=== PATIENT | female | born 1945 | race Caucasian/White ===

== ENCOUNTER 2017-01-17 00:21 | Emergency (ER) | payer OTHER ==
[2017-01-17] MEDS ORDERED: SODIUM CHLORIDE 1,000 ML IV STA (01:36)
[2017-01-17] MEDS ORDERED: ONDANSETRON 4 MG/2 ML VIAL IVPB ONE (01:36)
[2017-01-17] MEDS ORDERED: morphine CARPU-JECT 4 MG/1 ML DISP.SYRIN IVPUSH ONE (01:36)
--- NOTE | 2017-01-17 01:40 | PDOC ---
*Physical Exam - Vital Signs Last Vital Signs Temp Pulse Resp BP Pulse Ox 97.5 F L 56 L 14 140/76 97 01/17/17 01:29 01/17/17 01:29 01/17/17 01:29 01/17/17 01:29 01/17/17 01:29 ED Treatment Course - LABORATORY CBC & Chemistry Diagram: 01/17/17 01:53 01/17/17 01:53 Medical Decision Making - Medical Decision Making 01/17/17 01:40 agree with care from HECTOR Mathur *DC/Admit/Observation/Transfer Diagnosis at time of Disposition: Gastroenteritis - Discharge Dispostion Disposition: HOME Condition at time of disposition: Improved - Prescriptions Prescriptions: Famotidine [Pepcid] 40 mg PO DAILY #14 tablet Ondansetron [Zofran Odt -] 4 mg SL Q6H PRN #20 od.tablet PRN Reason: Nausea - Patient Instructions Printed Discharge Instructions: DI for Bacterial Gastroenteritis -- Adult Additional Instructions: Follow up with Dr. Bae (Gastroenterology). Take medications as prescribed. Return if symptoms worsen or any concerns for further evaluation. Print Language: TURKMEN
[2017-01-17 02:00] LABS: BASOPHIL 0.4 % (0-2.0); EOSINOPHIL 2.1 % (0-4.5); MCH 31.6 pg (25.7-33.7); MCHC 34.1 g/dl (32.0-36.0); MEAN CELL VOLUME 92.6 fl (80-96); MEAN PLT VOLUME 8.3 fl (7.5-11.1); NEUTROPHILS 77.6 % (42.8-82.8); PLATELET COUNT 181 K/MM3 (134-434); RDW 12.6 % (11.6-15.6); WHITE BLOOD COUNT 6.1 K/mm3 (4.0-10.0)
[2017-01-17] MEDS ORDERED: ONDANSETRON 4 MG/2 ML VIAL ONE (02:00)
[2017-01-17] MEDS ORDERED: morphine CARPU-JECT 4 MG/1 ML DISP.SYRIN ONE (02:00)
[2017-01-17 02:03] VITALS: BP 140/76; PULSE 56; TEMP 97.5; BMI 16.6
[2017-01-17 02:26] LABS: ALBUMIN 3.8 g/dl (3.4-5.0); ALK PHOS 59 U/L (45-117); AMYLASE 31 U/L (25-115); ANION GAP 9 (8-16); BILIRUBIN,TOTAL 0.3 mg/dL (0.2-1.0); CALCIUM 8.9 mg/dL (8.5-10.1); CO2 26 mmol/L (21-32); CREATININE 0.7 mg/dL (0.55-1.02); GLUCOSE,RANDOM 111 mg/dL (74-106); SGOT/AST 19 U/L (15-37); SGPT/ALT 30 U/L (12-78); TOT PROT 6.5 g/dl (6.4-8.2)
[2017-01-17 02:29] LABS: CPK 132 IU/L (26-192); TROPONIN I < 0.02 ng/ml (0.00-0.05)
--- NOTE | 2017-01-17 05:09 | PDOC ---
History of Present Illness - General Chief Complaint: Nausea/Vomiting Stated Complaint: ABDOMINAL PAIN,VOMITING Time Seen by Provider: 01/17/17 01:24 History Source: Patient Exam Limitations: No Limitations - History of Present Illness Travel History: No Initial Comments: 01/17/17 05:03 71-year-old female patient presents to emergency department complaining of abdominal pain. Patient has a past medical, appendectomy, hypothyroidism, and depression. Patient states abd after eating dinner vom3, went away for about 30 minutes, and return constant worsening abdominal pain. She states symptoms began yesterday but returned today intermittently and worse. patient denies chest pain, diff breathing, SOB, rash, cough, congestion, diarrhea, constipation , rectal bleeding, or any other complaints at this time. Timing/Duration: reports: constant, getting worse Abdominal Pain Onset Location: reports: RLQ, LLQ Pain Radiation: reports: no radiation Activities at Onset: reports: none Treatment Prior to Arrive: worse with: analgesics, antacids, cold pack, heat, laxative, enema, other Past History - Travel Traveled outside of the country in the last 30 days: No Close contact w/someone who was outside of country & ill: No - Past Medical History Allergies/Adverse Reactions: Allergies Allergy/AdvReac Type Severity Reaction Status Date / Time Penicillins Allergy Verified 01/17/17 01:29 Home Medications: Ambulatory Orders Bupropion HBr [Aplenzin] 174 mg PO TID 01/17/17 Famotidine [Pepcid] 40 mg PO DAILY #14 tablet 01/17/17 Levothyroxine [Synthroid -] 0 mcg PO DAILY 01/17/17 Ondansetron [Zofran Odt -] 4 mg SL Q6H PRN #20 od.tablet 01/17/17 Tiotropium [place] [Spiriva] 1 inh IH DAILY 01/17/17 - Suicide/Smoking/Psychosocial Hx Smoking History: Never smoked Information on smoking cessation initiated: No Hx Alcohol Use: No Drug/Substance Use Hx: No Abd/GI Specific PMHX - Complaint Specific PMHX Colitis: No Diverticulitis: No Gall Bladder Disease: No GERD: No Hepatitis: No Irritable Bowel Synd (IBS): No Pancreatitis: No GI Ulcer Disease: No Review of Systems - Review of Systems Able to Perform ROS?: Yes Is the patient limited Armenian proficient: No Constitutional: No: Chills, Fever ABD/GI: Yes: Nausea, Vomiting, Abdominal cramping (Lower Abdomen). No: Constipated, Diarrhea, Poor Appetite, Poor Fluid Intake All Other Systems: Reviewed and Negative *Physical Exam - Vital Signs Last Vital Signs Temp Pulse Resp BP Pulse Ox 97.5 F L 56 L 14 140/76 97 01/17/17 01:29 01/17/17 01:29 01/17/17 01:29 01/17/17 01:01/17/17 01:29 - Physical Exam General Appearance: Yes: Nourished, Appropriately Dressed, Mild Distress. No: Apparent Distress, Moderate Distress, Severe Distress Neck: positive: Trachea midline, Supple. negative: Lymphadenopathy (R), Lymphadenopathy (L) Respiratory/Chest: positive: Lungs Clear, Normal Breath Sounds. negative: Chest Tender, Respiratory Distress, Accessory Muscle Use, Labored Respiration, Rapid RR, Rhonchi, Stridor, Wheezing Cardiovascular: positive: Regular Rhythm, Regular Rate Gastrointestinal/Abdominal: positive: Normal Bowel Sounds, Tender, Soft, Guarding, Rebound, Tenderness. negative: Distended Musculoskeletal: positive: Normal Inspection. negative: CVA Tenderness Extremity: positive: Normal Capillary Refill, Normal Inspection, Normal Range of Motion. negative: Pedal Edema, Swelling, Calf Tenderness, Erythema, Inflammation Integumentary: positive: Normal Color, Dry, Warm Neurologic: positive: pst manager II-XII NML intact, Fully Oriented, Alert, Normal Mood/ Affect, Normal Response, Motor Strength 5/5 ED Treatment Course - LABORATORY CBC & Chemistry Diagram: 01/17/17 01:53 01/17/17 01:53 - ADDITIONAL ORDERS Additional order review: Laboratory Results 01/17/17 01/17/17 01:53 01:53 Sodium 142 Potassium 3.5 Chloride 107 Carbon Dioxide 26 Anion Gap 9 BUN 27 H Creatinine 0.7 Creat Clearance w eGFR > 60 Random Glucose 111 H Calcium 8.9 Total Bilirubin 0.3 AST 19 ALT 30 Alkaline Phosphatase 59 Creatine Kinase 132 Troponin I < 0.02 Total Protein 6.5 Albumin 3.8 Total Amylase 31 Lipase 96 01/17/17 01:53 RBC 4.08 MCV 92.6 MCHC 34.1 RDW 12.6 MPV 8.3 Neutrophils % 77.6 Lymphocytes % 12.9 Monocytes % 7.0 Eosinophils % 2.1 Basophils % 0.4 - RADIOLOGY Radiology Studies Ordered: Category Date Time Status ABDOMEN & PELVIS CT WITH CONTR [CT] Stat CT Scan 01/17/17 01:36 Taken - Medications Given in the ED: ED Medications Discontinued Medications Generic Name Dose Route Start Last Admin Trade Name Freq PRN Reason Stop Dose Admin Sodium Chloride 1,000 mls @ 1,000 mls/hr 01/17/17 01:36 01/17/17 02:24 Normal Saline - IV 01/17/17 02:35 1,000 mls/hr ASDIR STA Administration Morphine Sulfate 4 mg 01/17/17 01:36 01/17/17 02:24 Morphine Injection - IVPUSH 01/17/17 01:37 4 mg ONCE ONE Administration Ondansetron HCl 8 mg 01/17/17 01:36 01/17/17 02:24 Zofran Injection IVPB 01/17/17 01:37 8 mg ONCE ONE Administration *DC/Admit/Observation/Transfer Diagnosis at time of Disposition: Gastroenteritis - Discharge Dispostion Disposition: HOME Condition at time of disposition: Improved Admit: No - Prescriptions Prescriptions: Famotidine [Pepcid] 40 mg PO DAILY #14 tablet Ondansetron [Zofran Odt -] 4 mg SL Q6H PRN #20 od.tablet PRN Reason: Nausea - Patient Instructions Printed Discharge Instructions: DI for Bacterial Gastroenteritis -- Adult Additional Instructions: Follow up with Dr. Bae (Gastroenterology). Take medications as prescribed. Return if symptoms worsen or any concerns for further evaluation. Print Language: [place]
--- NOTE | 2017-01-17 09:08 | PDOC ---
*Physical Exam - Vital Signs Last Vital Signs Temp Pulse Resp BP Pulse Ox 97.5 F L 56 L 14 140/76 97 01/17/17 01:29 01/17/17 01:29 01/17/17 01:29 01/17/17 01:29 01/17/17 01:29 ED Treatment Course - LABORATORY CBC & Chemistry Diagram: 01/17/17 01:53 01/17/17 01:53 - ADDITIONAL ORDERS Additional order review: Laboratory Results 01/17/17 01/17/17 01:53 01:53 Sodium 142 Potassium 3.5 Chloride 107 Carbon Dioxide 26 Anion Gap 9 BUN 27 H Creatinine 0.7 Creat Clearance w eGFR > 60 Random Glucose 111 H Calcium 8.9 Total Bilirubin 0.3 AST 19 ALT 30 Alkaline Phosphatase 59 Creatine Kinase 132 Troponin I < 0.02 Total Protein 6.5 Albumin 3.8 Total Amylase 31 Lipase 96 01/17/17 01:53 RBC 4.08 MCV 92.6 MCHC 34.1 RDW 12.6 MPV 8.3 Neutrophils % 77.6 Lymphocytes % 12.9 Monocytes % 7.0 Eosinophils % 2.1 Basophils % 0.4 - Medications Given in the ED: ED Medications Discontinued Medications Generic Name Dose Route Start Last Admin Trade Name Freq PRN Reason Stop Dose Admin Sodium Chloride 1,000 mls @ 1,000 mls/hr 01/17/17 01:36 01/17/17 02:24 Normal Saline - IV 01/17/17 02:35 1,000 mls/hr ASDIR STA Administration Morphine Sulfate 4 mg 01/17/17 01:36 01/17/17 02:24 Morphine Injection - IVPUSH 01/17/17 01:37 4 mg ONCE ONE Administration Ondansetron HCl 8 mg 01/17/17 01:36 01/17/17 02:24 Zofran Injection IVPB 01/17/17 01:37 8 mg ONCE ONE Administration Medical Decision Making - Medical Decision Making 01/17/17 09:01 called by radiology - pt with a 6mm ureteral stone at Prox L ureter with mild hydro called the patient. currently no pain. no hematuria. Pt currently visiting here from [place] for a couple more weeks. Recommended follow up with [address] [place] [address] and follow up with urology - Dr. Miller. Pt verbalises understanding of all instructions. Gave all reasons to return to the ED. Pt denies dysuria, f/c, hematuria, urinary complaints. No pain. *DC/Admit/Observation/Transfer Diagnosis at time of Disposition: Gastroenteritis - Discharge Dispostion Disposition: HOME Condition at time of disposition: Improved - Prescriptions Prescriptions: Famotidine [Pepcid] 40 mg PO DAILY #14 tablet Ondansetron [Zofran Odt -] 4 mg SL Q6H PRN #20 od.tablet PRN Reason: Nausea - Referrals - Patient Instructions Printed Discharge Instructions: DI for Bacterial Gastroenteritis -- Adult Additional Instructions: Follow up with Dr. Bae (Gastroenterology). Take medications as prescribed. Return if symptoms worsen or any concerns for further evaluation. Print Language: MAORI - Post Discharge Activity
== END 2017-01-17 05:36 | disposition home or self-care (01) ==
LOC: JER 00:21
PROC: 3E033NZ Introduction of Analgesics, Hypnotics, Sedatives into Peripheral Vein, Percutaneous Approach (ICD-10-PCS; principal; 2017-01-17)
PROC: 3E033GC Introduction of Other Therapeutic Substance into Peripheral Vein, Percutaneous Approach (ICD-10-PCS; 2017-01-17)
PROC: 3E0337Z Introduction of Electrolytic and Water Balance Substance into Peripheral Vein, Percutaneous Approach (ICD-10-PCS; 2017-01-17)
DX: K52.9 Noninfective gastroenteritis and colitis, unspecified (principal)
CPT/HCPCS: 36415; 74177-TC; 80053; 82150; 83690; 84484; 85025; 99281-25; 99283-25

== ENCOUNTER 2017-01-17 21:12 | Emergency (ER) | payer OTHER ==
[2017-01-17 21:17] VITALS: TEMP 97.6; BMI 16.6
[2017-01-17] MEDS ORDERED: PANTOPRAZOLE SODIUM 40 MG in SODIUM CHLORIDE 100 ML IVPB ONE (22:43)
[2017-01-17] MEDS ORDERED: FAMOTIDINE 20 MG/50 ML IVPB 50 ML IVPB ONE ×2 (22:44→22:50)
[2017-01-17] MEDS ORDERED: morphine CARPU-JECT 4 MG/1 ML DISP.SYRIN IVPUSH ONE (22:44)
[2017-01-17] MEDS ORDERED: METOCLOPRAMIDE HCL INJECTION 10 MG/2 ML VIAL IVPB ONE (22:44)
[2017-01-17] MEDS ORDERED: SODIUM CHLORIDE 1,000 ML IV STA (22:44)
[2017-01-17] MEDS ORDERED: KETOROLAC TROMETHAMINE 30 MG/1 ML VIAL IVPUSH ONE (22:53)
[2017-01-17] MEDS ORDERED: morphine CARPU-JECT 4 MG/1 ML DISP.SYRIN ONE (22:54)
[2017-01-17] MEDS ORDERED: METOCLOPRAMIDE HCL INJECTION 10 MG/2 ML VIAL ONE (22:54)
[2017-01-17] MEDS ORDERED: PANTOPRAZOLE SODIUM 100 ML IVPB ONE (22:54)
[2017-01-17] MEDS ORDERED: KETOROLAC TROMETHAMINE 30 MG/1 ML VIAL ONE (23:15)
--- NOTE | 2017-01-17 23:24 | PDOC ---
History of Present Illness - General Chief Complaint: Pain Stated Complaint: PAIN Time Seen by Provider: 01/17/17 22:42 History Source: Patient, Significant Other Exam Limitations: No Limitations - History of Present Illness Travel History: No Initial Comments: 01/17/17 23:18 71yo Female patient seen in this ED yesterday. Please see my previous note. Patient was discharge with Dx: Gastroenteritis r/t negative Ct-Scan. Patient was then called earlier today and notified that she actually has a left 6 mm Ureter Stone with mild hydronephrosis. Please refer to Soni Vaughan charting. Patient returns tonight c/o left flank pain and vomiting worsening. No new complaints at this time. Past History - Travel Traveled outside of the country in the last 30 days: No Close contact w/someone who was outside of country & ill: No - Past Medical History Allergies/Adverse Reactions: Allergies Allergy/AdvReac Type Severity Reaction Status Date / Time Penicillins Allergy Verified 01/17/17 01:29 Home Medications: Ambulatory Orders Bupropion HBr [Aplenzin] 174 mg PO TID 01/17/17 Famotidine [Pepcid] 40 mg PO DAILY #14 tablet 01/17/17 Levothyroxine [Synthroid -] 0 mcg PO DAILY 01/17/17 Ondansetron [Zofran Odt -] 4 mg SL Q6H PRN #20 od.tablet 01/17/17 Tiotropium [place] [Spiriva] 1 inh IH DAILY 01/17/17 Ciprofloxacin [Cipro (Restricted To Id)] 500 mg PO BID #14 tablet 01/18/17 Oxycodone HCl/Acetaminophen [Percocet 5-325 mg Tablet] 1 tab PO Q4H PRN #24 tablet MDD 6 tabs 01/18/17 Tamsulosin HCl [Flomax] 0.4 mg PO DAILY #30 cap.er.24h 01/18/17 COPD: Yes Thyroid Disease: Yes Other medical history: depression - Surgical History Appendectomy: Yes - Suicide/Smoking/Psychosocial Hx Smoking History: Former smoker Have you smoked in the past 12 months: No Information on smoking cessation initiated: No Hx Alcohol Use: Yes Drug/Substance Use Hx: No Abd/GI Specific PMHX - Complaint Specific PMHX Colitis: No Diverticulitis: No Gall Bladder Disease: No GERD: No Hepatitis: No Irritable Bowel Synd (IBS): No Pancreatitis: No GI Ulcer Disease: No Review of Systems - Review of Systems Able to Perform ROS?: Yes Is the patient limited Jordanian proficient: No Constitutional: No: Chills, Fever Respiratory: No: Cough, Shortness of Breath, Wheezing Cardiac (ROS): No: Chest Pain, Palpitations, Syncope, Chest Tightness ABD/GI: Yes: Nausea, Poor Fluid Intake, Vomiting. No: Constipated, Diarrhea, Poor Appetite, Abdominal cramping : Yes: Flank Pain (Left). No: Burning, Dysuria, Discharge, Hematuria All Other Systems: Reviewed and Negative *Physical Exam - Vital Signs Last Vital Signs Temp Pulse Resp BP Pulse Ox 97.6 F 57 L 19 138/87 96 01/17/17 21:15 01/17/17 21:15 01/17/17 21:15 01/17/17 21:15 01/17/17 21:15 - Physical Exam General Appearance: Yes: Nourished, Appropriately Dressed, Apparent Distress, Mild Distress. No: Moderate Distress, Severe Distress Neck: positive: Trachea midline, Supple. negative: Stridor, Lymphadenopathy (R) , Lymphadenopathy (L) Respiratory/Chest: positive: Lungs Clear, Normal Breath Sounds. negative: Chest Tender, Respiratory Distress, Accessory Muscle Use, Labored Respiration, Rapid RR, Paradoxal Breathing, Stridor Cardiovascular: positive: Regular Rhythm, Regular Rate Gastrointestinal/Abdominal: positive: Tender (Left flank), Soft, Increased Bowel Sounds, Tenderness. negative: Distended, Guarding, Rebound Musculoskeletal: positive: Normal Inspection, CVA Tenderness, CVA Tenderness (L) . negative: CVA Tenderness (R) Extremity: positive: Normal Capillary Refill, Normal Inspection, Normal Range of Motion Integumentary: positive: Normal Color, Dry, Warm Neurologic: positive: painter aircraft II-XII NML intact, Fully Oriented, Alert, Normal Mood/ Affect, Normal Response, Motor Strength 08/24 ED Treatment Course - LABORATORY CBC & Chemistry Diagram: 01/17/17 23:04 01/17/17 23:04 - Medications Given in the ED: ED Medications Discontinued Medications Generic Name Dose Route Start Last Admin Trade Name Freq PRN Reason Stop Dose Admin Pantoprazole Sodium 40 mg/ 100 mls @ 200 mls/hr 01/17/17 22:43 01/17/17 23:05 Sodium Chloride IVPB 01/17/17 23:12 200 mls/hr ONCE ONE Administration Famotidine/Sodium Chloride 50 mls @ 100 mls/hr 01/17/17 22:44 01/17/17 23:05 Pepcid 20 Mg Premixed Ivpb - IVPB 01/17/17 23:13 100 mls/hr ONCE ONE Administration Metoclopramide HCl 10 mg 01/17/17 22:44 01/17/17 23:04 Reglan Injection - IVPB 01/17/17 22:45 10 mg ONCE ONE Administration Morphine Sulfate 4 mg 01/17/17 22:44 01/17/17 23:05 Morphine Injection - IVPUSH 01/17/17 22:45 4 mg ONCE ONE Administration Medical Decision Making - Medical Decision Making 01/17/17 23:24 Plan: Hydrate w/ fluids, give Reglan, Toradol, Morphine, draw labs then reassess. *DC/Admit/Observation/Transfer Diagnosis at time of Disposition: Renal colic on left side - Discharge Dispostion Disposition: HOME Condition at time of disposition: Improved Admit: No - Prescriptions Prescriptions: Ciprofloxacin [Cipro (Restricted To Id)] 500 mg PO BID #14 tablet Tamsulosin HCl [Flomax] 0.4 mg PO DAILY #30 cap.er.24h Oxycodone HCl/Acetaminophen [Percocet 5-325 mg Tablet] 1 tab PO Q4H PRN #24 tablet MDD 6 tabs PRN Reason: Severe Pain - Referrals Referrals: Genaro Miller MD., MD [Staff Physician] - - Patient Instructions Printed Discharge Instructions: Kidney Stones -- Adult Additional Instructions: Follow up with Dr. Miller (Urology). Call to schedule appointment to discuss options in dealing with Renal Stone. Take your medications as prescribed. Do not drive, drink alcohol or operate heavy machinery while taking Percocet. Return if fever, not stop vomiting, unable to tolerate foods or fluids. Zofran- Nausea Percocet- Pain Flomax- help pass uretheral stone Dr. Miller- Urologist to call tomorrow for follow up appointment. Cipro- Antibiotics Print Language: WOLOF
[2017-01-17 23:28] LABS: BASOPHIL 0.2 % (0-2.0); EOSINOPHIL 1.8 % (0-4.5); MCH 32.7 pg (25.7-33.7); MCHC 34.8 g/dl (32.0-36.0); MEAN CELL VOLUME 93.8 fl (80-96); MEAN PLT VOLUME 8.8 fl (7.5-11.1); NEUTROPHILS 74.6 % (42.8-82.8); PLATELET COUNT 180 K/MM3 (134-434); RDW 12.6 % (11.6-15.6)
[2017-01-17 23:41] LABS: ALBUMIN 3.9 g/dl (3.4-5.0); AMYLASE 30 U/L (25-115); ANION GAP 9 (8-16); BILIRUBIN,DIRECT < 0.1 mg/dL (0.0-0.2); BILIRUBIN,TOTAL 0.3 mg/dL (0.2-1.0); CO2 28 mmol/L (21-32); CREATININE 0.9 mg/dL (0.55-1.02); GLUCOSE,RANDOM 106 mg/dL (74-106); SGOT/AST 23 U/L (15-37); TOT PROT 6.4 g/dl (6.4-8.2)
[2017-01-17 23:46] LABS: ALK PHOS 63 U/L (45-117); SGPT/ALT 30 U/L (12-78)
[2017-01-18] MEDS ORDERED: SODIUM CHLORIDE 500 ML IV STA (00:15)
[2017-01-18] MEDS ORDERED: TAMSULOSIN HCL 0.4 MG CAP.ER.24H (FP) PO ONE (00:15)
[2017-01-18] MEDS ORDERED: TAMSULOSIN HCL 0.4 MG CAP.ER.24H (FP) ONE (00:47)
[2017-01-18 01:25] LABS: URINE APPEARANCE SLCLOUDY; URINE BILIRUBIN NEGATIVE (NEGATIVE); URINE BLOOD 3+ (NEGATIVE); URINE COLOR YELLOW; URINE GLUCOSE (UA) NEGATIVE (NEGATIVE); URINE KETONE TRACE (NEGATIVE); URINE LEUK ESTERASE NEGATIVE (NEGATIVE); URINE NITRITE NEGATIVE (NEGATIVE); URINE PROTEIN NEGATIVE (NEGATIVE); URINE UROBILINOGEN NEGATIVE mg/dL (0.2-1.0)
[2017-01-18 01:28] LABS: URINE BACTERIA FEW /hpf (NONE SEEN); URINE HYALINE CAST 1 /lpf; URINE MUCUS FEW; URINE RBC 151 /hpf (0-3); URINE WBC 3 /hpf (3-5)
[2017-01-18 02:20] VITALS: BP 110/60; PULSE 62
== END 2017-01-18 02:20 | disposition home or self-care (01) ==
LOC: JER 21:12
PROC: 3E0337Z Introduction of Electrolytic and Water Balance Substance into Peripheral Vein, Percutaneous Approach (ICD-10-PCS; principal; 2017-01-17)
PROC: 3E033GC Introduction of Other Therapeutic Substance into Peripheral Vein, Percutaneous Approach (ICD-10-PCS; 2017-01-17)
PROC: 3E033NZ Introduction of Analgesics, Hypnotics, Sedatives into Peripheral Vein, Percutaneous Approach (ICD-10-PCS; 2017-01-17)
PROC: 3E0333Z Introduction of Anti-inflammatory into Peripheral Vein, Percutaneous Approach (ICD-10-PCS; 2017-01-17)
PROC: 3E033GC Introduction of Other Therapeutic Substance into Peripheral Vein, Percutaneous Approach (ICD-10-PCS; 2017-01-17)
PROC: 3E033GC Introduction of Other Therapeutic Substance into Peripheral Vein, Percutaneous Approach (ICD-10-PCS; 2017-01-17)
DX: N13.2 Hydronephrosis with renal and ureteral calculous obstruction (principal); J44.9 Chronic obstructive pulmonary disease, unspecified; E03.9 Hypothyroidism, unspecified; F32.9 Major depressive disorder, single episode, unspecified
CPT/HCPCS: 36415; 80048; 80076; 81003; 81015; 82150; 83690; 85025; 99282-25

== ENCOUNTER 2018-05-03 09:58 | Emergency (ER) | payer BC ==
[2018-05-03 10:03] VITALS: BP 119/71; PULSE 99; TEMP 98; BMI 17.4
[2018-05-03] MEDS ORDERED: ALBUTEROL SO4 2.5/IPRATROPIUM 0.5 INH SOL 3 ML VIAL.NEB. NEB ONE ×4 (10:36→11:28)
--- NOTE | 2018-05-03 10:45 | PDOC ---
History of Present Illness - General Chief Complaint: Cold Symptoms Stated Complaint: COLD SYMPTOMS Time Seen by Provider: 05/03/18 10:14 History Source: Patient Exam Limitations: No Limitations - History of Present Illness Initial Comments: 05/03/18 10:37 Patient came to emergency department with worsening postnasal drip, nasal drainage, and now fevers with cough started yesterday. Postnasal drainage started last week. Patient suffers from COPD but has progressively worsened over the past 2 days to febrile coughing illness. Timing/Duration: reports: getting worse Severity: reports: moderate Modifying Factors: improves with: coughing Associated Symptoms: reports: cough, dizziness, fever/chills, nasal congestion, nasal drainage, wheezing Past History - Travel Traveled outside of the country in the last 30 days: No Close contact w/someone who was outside of country & ill: No - Past Medical History Allergies/Adverse Reactions: Allergies Allergy/AdvReac Type Severity Reaction Status Date / Time Penicillins Allergy Verified 05/03/18 10:00 Home Medications: Ambulatory Orders Tiotropium [place] [Spiriva] 1 inh IH DAILY 01/17/17 Albuterol Sulfate Inhaler - [Ventolin HFA Inhaler -] 1 - 2 inh PO Q4H #1 inhaler 05/03/18 Sulfamethoxazole/Trimethoprim [Bactrim *Ds*] 1 each PO BID #20 tablet 05/03/18 COPD: Yes Thyroid Disease: Yes - Surgical History Appendectomy: Yes - Immunization History Immunization Up to Date: Yes - Suicide/Smoking/Psychosocial Hx Smoking History: Never smoked Have you smoked in the past 12 months: No Hx Alcohol Use: No Drug/Substance Use Hx: No Review of Systems - Review of Systems Able to Perform ROS?: Yes Is the patient limited French proficient: Yes Constitutional: Yes: Symptoms Reported, See HPI, Chills, Fever, Loss of Appetite , Malaise HEENTM: Yes: Symptoms Reported, See HPI, Nose Congestion (with thick green- yellow drainage) Respiratory: Yes: Symptoms reported, See HPI, Cough, Orthopnea, Wheezing Cardiac (ROS): No: Symptoms Reported ABD/GI: No: Symptoms Reported : No: Symptoms Reported Musculoskeletal: Yes: Symptoms Reported, See HPI, Joint Pain, Joint Swelling All Other Systems: Reviewed and Negative *Physical Exam - Vital Signs Last Vital Signs Temp Pulse Resp BP Pulse Ox 98.0 F 99 H 22 H 119/71 94 L 05/03/18 10:00 05/03/18 10:00 05/03/18 10:00 05/03/18 10:00 05/03/18 10:00 - Physical Exam General Appearance: Yes: Nourished, Appropriately Dressed, Apparent Distress HEENT: positive: [id number], Normal ENT Inspection, TMs Normal (S2 but landmarks visualized), Nasal Congestion, Rhinorrhea Neck: positive: Tender, Supple, Lymphadenopathy (R), Lymphadenopathy (L) Respiratory/Chest: positive: Rhonchi, Wheezing. negative: Lungs Clear, Normal Breath Sounds Gastrointestinal/Abdominal: positive: Normal Bowel Sounds, Tender, Soft Extremity: positive: Normal Inspection Integumentary: positive: Dry, Warm, Pale Neurologic: positive: record maker II-XII NML intact, Fully Oriented, Alert, Normal Mood/ Affect, Normal Response Moderate Sedation - Procedure Monitoring Vital Signs: Procedure Monitoring Vital Signs Temperature 98.0 F 05/03/18 10:00 Pulse Rate 99 H 05/03/18 10:00 Respiratory Rate 22 H 05/03/18 10:00 Blood Pressure 119/71 05/03/18 10:00 O2 Sat by Pulse Oximetry (%) 94 L 05/03/18 10:00 ED Treatment Course - RADIOLOGY Radiology Studies Ordered: Category Date Time Status CHEST PA & LAT [RAD] Stat Radiology 05/03/18 10:36 Ordered Progress Note - Progress Note Progress Note: Somewhat improved after second DuoNeb, chest x-ray is negative for new infiltrates. Pulse ox remains in the low 90s to 94 but may exhibit baseline for patient with COPD. Patient lives with sister who states feels comfortable going home. Will start Bactrim as antibiotic to treat sinusitis for 10 days, will continue albuterol inhalers at home, and follow-up with Dr. Temple on Saturday. Understands if condition worsens to return to emergency department *DC/Admit/Observation/Transfer Diagnosis at time of Disposition: Sinusitis Qualifiers: Sinusitis location: unspecified location Chronicity: acute Recurrence: not specified as recurrent Qualified Code(s): J01.90 - Acute sinusitis, unspecified - Discharge Dispostion Disposition: HOME Condition at time of disposition: Stable Decision to Admit order: No - Prescriptions Prescriptions: Albuterol Sulfate Inhaler - [Ventolin HFA Inhaler -] 1 - 2 inh PO Q4H #1 inhaler Sulfamethoxazole/Trimethoprim [Bactrim *Ds*] 1 each PO BID #20 tablet - Referrals Referrals: Zuri Temple MD [Primary Care Provider] - - Patient Instructions Printed Discharge Instructions: DI for Acute Bronchitis Additional Instructions: Rest, drink lots of fluids: Teas, water, soups, Pedialyte Saltwater gargles Steamy showers/seem to face break up mucus Avoid contact with others until fevers and cough resolved Lots of handwashing and good hygiene Continue [id number] medications for symptomatic relief Tylenol or Motrin for fever and pain Continue albuterol pump, 2 puffs every 4-6 hours for the next 2 days then as needed for continued cough Bactrim antibiotic 1 tablet every 12 hours for 10 days to treat sinusitis Followup with private physician in one to 2 days Return to emergency department / pediatric hospital for worsened symptoms, fevers, dehydration - Post Discharge Activity
== END 2018-05-03 12:31 | disposition home or self-care (01) ==
LOC: JERFT 09:58
PROC: 3E0F7GC Introduction of Other Therapeutic Substance into Respiratory Tract, Via Natural or Artificial Opening (ICD-10-PCS; principal; 2018-05-03)
PROC: 3E0F7GC Introduction of Other Therapeutic Substance into Respiratory Tract, Via Natural or Artificial Opening (ICD-10-PCS; 2018-05-03)
DX: J44.9 Chronic obstructive pulmonary disease, unspecified (principal)
CPT/HCPCS: 71046-TC-FY; 87804; 94640; 99281-25

== ENCOUNTER 2019-05-25 19:41 | Emergency (ER) | payer OTHER, MEDICARE ==
[2019-05-25 19:53] VITALS: BP 150/80; PULSE 107; BMI 17.1
[2019-05-25] MEDS ORDERED: SODIUM CHLORIDE 0.9% 500 ML INFUS.BAG IV ONE (19:56)
--- NOTE | 2019-05-25 19:56 | PDOC ---
Rapid Medical Evaluation Chief Complaint: SIRS, Suspected/Possible Time Seen by Provider: 05/25/19 19:53 Medical Evaluation: Allergies Allergy/AdvReac Type Severity Reaction Status Date / Time Penicillins Allergy Verified 05/25/19 19:50 05/25/19 19:53 This patient had brief in-person evaluation in triage cc: fever and abdominal discomfort HPI: Patient reports fever and abdominal discomfort after having colonoscopy today. States feeling weak, sent by pmd for further evaluation PE: NAD unlabored breathing mild tenderness with palpation Oders: labs saline lock This patient will proceed to emergency department for further evaluation. Discharge Disposition - Diagnosis Abdominal pain - Referrals - Patient Instructions - Post Discharge Activity
[2019-05-25 20:38] LABS: BASO % 0.2 % (0-2.0); EOS % 3.9 % (0-4.5); HEMATOCRIT 40.1 % (32.4-45.2); HEMOGLOBIN 13.8 GM/dL (10.7-15.3); MCH 31.9 pg (25.7-33.7); MCHC 34.5 g/dl (32.0-36.0); MEAN CELL VOLUME 92.5 fl (80-96); MONO % 12.6 % (3.8-10.2); NEUT % 75.3 % (42.8-82.8); PLATELET COUNT 153 K/MM3 (134-434); RBC 4.33 M/mm3 (3.60-5.2); RDW 12.9 % (11.6-15.6); WHITE BLOOD COUNT 3.8 K/mm3 (4.0-10.0)
[2019-05-25 21:17] LABS: ALBUMIN 4.1 g/dl (3.4-5.0); ALK PHOS 53 U/L (45-117); ANION GAP 8 MMOL/L (8-16); BILIRUBIN,TOTAL 0.4 mg/dL (0.2-1); BLOOD UREA NITROGEN 22.3 mg/dL (7-18); CALCIUM 9.3 mg/dL (8.5-10.1); CHLORIDE 106 mmol/L (98-107); CO2 25 mmol/L (21-32); CREATININE 0.7 mg/dL (0.55-1.3); GLUCOSE,RANDOM 110 mg/dL (74-106); POTASSIUM 3.5 mmol/L (3.5-5.1); SGOT/AST 29 U/L (15-37); SGPT/ALT 37 U/L (13-61); SODIUM 140 mmol/L (136-145)
--- NOTE | 2019-05-25 23:20 | PDOC ---
History of Present Illness - General Chief Complaint: SIRS, Suspected/Possible Stated Complaint: FEVER Time Seen by Provider: 05/25/19 19:53 History Source: Patient Exam Limitations: No Limitations - History of Present Illness Initial Comments: 05/25/19 23:23 73yF w PMHx hypothydroidism, depression, COPD presenting w fever, poor appetite , yadira frontal headache, and generalized weakness after colonoscopy this morning by Dr Menchaca. Advised by Dr Menchaca 5d ago to avoid eating fruits and vegetables , pt has also been reducing food intake. Did not take any meds today. Has chronic cough attributed to COPD. 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 Currently denies chest pain, SOB, nausea/vomiting, ABD pain, urinary/bowel mvmt changes. Past History - Past Medical History Allergies/Adverse Reactions: Allergies Allergy/AdvReac Type Severity Reaction Status Date / Time Penicillins Allergy Verified 05/25/19 19:50 Home Medications: Ambulatory Orders Tiotropium [place] [Spiriva] 1 inh IH DAILY 01/17/17 Albuterol Sulfate Inhaler - [Ventolin HFA Inhaler -] 1 - 2 inh PO Q4H #1 inhaler 05/03/18 Sulfamethoxazole/Trimethoprim [Bactrim *Ds*] 1 each PO BID #20 tablet 05/03/18 COPD: Yes Thyroid Disease: Yes - Surgical History Appendectomy: Yes - Immunization History Immunization Up to Date: Yes - Psycho Social/Smoking Cessation Hx Smoking History: Never smoked Have you smoked in the past 12 months: No Hx Alcohol Use: No Drug/Substance Use Hx: No Review of Systems - Review of Systems Constitutional: No: Chills, Fever HEENTM: No: Eye Pain, Nose Pain, Nose Congestion, Throat Pain Respiratory: Yes: Cough. No: Shortness of Breath Cardiac (ROS): No: Chest Pain, Palpitations, Syncope ABD/GI: Yes: Poor Appetite. No: Abdominal Distended, Constipated, Diarrhea, Nausea, Vomiting : No: Burning, Dysuria Musculoskeletal: No: Back Pain, Joint Pain Integumentary: No: Bruising, Flushing Neurological: Yes: Headache. No: Seizure, Tingling Psychiatric: No: Anxiety, Depression Endocrine: No: Intolerance to Cold, Intolerance to Heat Hematologic/Lymphatic: No: Anemia, Blood Clots *Physical Exam - Vital Signs Last Vital Signs Temp Pulse Resp BP Pulse Ox 99.9 F H 107 H 18 150/80 92 L 05/25/19 19:50 05/25/19 19:50 05/25/19 19:50 05/25/19 19:50 05/25/19 19:50 - Physical Exam General Appearance: Yes: Nourished, Appropriately Dressed, Thin. No: Apparent Distress HEENT: positive: EOMI, АЛЕКСАНДР, Normal Voice, Hearing Grossly Normal. negative: Scleral Icterus (R), Scleral Icterus (L), Rhinorrhea Respiratory/Chest: positive: Decreased Breath Sounds (R lung). negative: Chest Tender, Respiratory Distress, Accessory Muscle Use, Labored Respiration, Crackles, Rales, Rhonchi, Stridor, Wheezing Cardiovascular: positive: Regular Rhythm, S1, S2, Tachycardia. negative: Edema , Murmur Gastrointestinal/Abdominal: positive: Normal Bowel Sounds, Flat, Soft. negative : Tender, Organomegaly Musculoskeletal: negative: CVA Tenderness (R), CVA Tenderness (L) Extremity: positive: Delayed Capillary Refill Integumentary: positive: Normal Color, Dry, Warm Neurologic: positive: veneer puller II-XII NML intact, Fully Oriented, Alert, Normal Mood/ Affect, Normal Response, Motor Strength 5/5, Responsive. negative: Sensory Deficit, Confused, Disoriented ED Treatment Course - LABORATORY CBC & Chemistry Diagram: 05/25/19 20:21 05/25/19 20:21 - ADDITIONAL ORDERS Additional order review: Laboratory Results 05/25/19 20:21 Sodium 140 Potassium 3.5 Chloride 106 Carbon Dioxide 25 Anion Gap 8 BUN 22.3 H Creatinine 0.7 Est GFR (CKD-EPI)AfAm 99.62 Est GFR (CKD-EPI)NonAf 85.95 Random Glucose 110 H Calcium 9.3 Total Bilirubin 0.4 AST 29 ALT 37 Alkaline Phosphatase 53 Total Protein 7.0 Albumin 4.1 05/25/19 20:21 RBC 4.33 MCV 92.5 MCHC 34.5 RDW 12.9 MPV 8.0 Neutrophils % 75.3 Lymphocytes % 8.0 D Monocytes % 12.6 H Eosinophils % 3.9 D Basophils % 0.2 - Medications Given in the ED: ED Medications Discontinued Medications Generic Name Dose Route Start Last Admin Trade Name Freq PRN Reason Stop Dose Admin Sodium Chloride 1,000 ml 05/25/19 19:56 05/25/19 23:12 Normal Saline - IV 05/25/19 19:57 1,000 ml ONCE ONE Administration Medical Decision Making - Medical Decision Making 05/25/19 23:51 CXR - clear lung huizar EKG - NSR, HR 92, QTc 460, no ST changes WBC 3.8 --- 73yF w PMHx hypothydroidism, depression, COPD presenting w fever, poor appetite , yadira frontal headache, and generalized weakness after colonoscopy this morning by Dr Menchaca. Symptoms likely 2/2 dehydration. Low concern for PNA (clear lungs CXR) vs UTI ( clean UA). No clear source of infection w WBC wnl. Given duonebx1, tylenol, reglan, 30mL/kg NS, vanc, zosyn. Started 2L NC for O2sat 91 on RA. O2sat >95 on RA after NS given. DC home pending flu results, O2sat >95 on RA Signed out to night team Discharge - Discharge Information Problems reviewed: Yes Clinical Impression/Diagnosis: Dehydration, Systemic inflammatory response syndrome (SIRS) Condition: Improved - Follow up/Referral Referrals: Obed Pena MD [Primary Care Provider] - - Patient Discharge Instructions Patient Printed Discharge Instructions: DI for Dehydration -- Adult Additional Instructions: Drink lots of water. Take tylenol if you have pain Please follow up with your primary care doctor - Post Discharge Activity
[2019-05-25] MEDS ORDERED: SODIUM CHLORIDE 1,402 ML IV ONE (23:22)
[2019-05-25] MEDS ORDERED: PIPERACILLIN/TAZOB 4.5 GM 4.5 GM in DEXTROSE 5%-WATER 100 ML IVPB ONE (23:39)
[2019-05-25] MEDS ORDERED: METOCLOPRAMIDE HCL INJECTION 10 MG/2 ML VIAL IVPB ONE (23:39)
[2019-05-25] MEDS ORDERED: VANCOMYCIN 1 GM in D5W (PRE-DOCKED) 1,000 MG/250 ML IVPB ONE (23:39)
[2019-05-25] MEDS ORDERED: ALBUTEROL SO4 2.5/IPRATROPIUM 0.5 INH SOL 3 ML VIAL.NEB. NEB ONE (23:41)
[2019-05-25] MEDS ORDERED: ACETAMINOPHEN 1000 MG/100 ML VIAL (NON FORMULARY) IVPB ONE (23:41)
--- NOTE | 2019-05-25 23:42 | PDOC ---
Attending Attestation - Resident Resident Name: LeninKishore - ED Attending Attestation I have performed the following: I have examined & evaluated the patient, The case was reviewed & discussed with the resident, I agree w/resident's findings & plan, Exceptions are as noted - HPI HPI: 05/26/19 00:05 This 73-year-old female had a colonoscopy today and later returned to her home to find that she had a fever and general malaise - Physicial Exam PE: 05/26/19 00:06 73-year-old female who appears to have dry mucous membranes Head normocephalic atraumatic Eyes pupils are equal and reactive to light and accommodation Neck is supple Lungs are clear to auscultation bilaterally CVS tachycardia Some mild tenderness to deep palpation but no rebound no guarding Extremities no deformities Neuro alert and oriented x3 - Medical Decision Making 05/27/19 03:06 Patient received IV fluids and felt much better and was discharged home impression dehydration weakness following colonoscopy prep
[2019-05-26] MEDS ORDERED: METOCLOPRAMIDE HCL INJECTION 10 MG/2 ML VIAL ONE (00:46)
[2019-05-26] MEDS ORDERED: VANCOMYCIN 1 GRAM (PRE-DOCKED) 1,000 MG/250 ML BAG IVPB ONE (00:46)
[2019-05-26] MEDS ORDERED: ACETAMINOPHEN INJECTION 100 ML IVPB ONE (00:46)
[2019-05-26] MEDS ORDERED: PIPERACILLIN/TAZOB 4.5 GM 4.5 GM/100 ML BAG IVPB ONE (00:46)
[2019-05-26] MEDS ORDERED: ALBUTEROL SO4 2.5/IPRATROPIUM 0.5 INH SOL 3 ML VIAL.NEB. NEB ONE (00:46)
[2019-05-26 01:09] LABS: VENOUS PC02 45.5 mmHg (38-52); VENOUS PH 7.37 (7.31-7.41)
[2019-05-26 01:14] LABS: VENOUS PO2 < 49 mmHg (28-48)
[2019-05-26 01:33] LABS: PH,URINE 5.5 (5.0-8.0); URINE APPEARANCE CLEAR; URINE BILIRUBIN NEGATIVE (NEGATIVE); URINE COLOR YELLOW; URINE GLUCOSE (UA) NEGATIVE (NEGATIVE); URINE KETONE 2+ (NEGATIVE); URINE LEUK ESTERASE NEGATIVE (NEGATIVE); URINE NITRITE NEGATIVE (NEGATIVE); URINE PROTEIN NEGATIVE (NEGATIVE); URINE UROBILINOGEN 0.2 mg/dL (0.2-1.0)
[2019-05-26 05:13] VITALS: TEMP 97.8
--- NOTE | 2019-05-26 09:24 | EKG ---
Test Reason : Blood Pressure : / mmHG Vent. Rate : 092 BPM Atrial Rate : 092 BPM P-R Int : 148 ms QRS Dur : 096 ms QT Int : 372 ms P-R-T Axes : 075 066 021 degrees QTc Int : 460 ms NORMAL SINUS RHYTHM NORMAL ECG NO PREVIOUS ECGS AVAILABLE Confirmed by Marvin Tyler MD ([id number]) on 05/26/2019 9:24:13 AM Referred By: Confirmed By:Marvin Tyler MD
== END 2019-05-26 03:13 | disposition home or self-care (01) ==
LOC: JER 19:41
PROC: 3E0F7GC Introduction of Other Therapeutic Substance into Respiratory Tract, Via Natural or Artificial Opening (ICD-10-PCS; principal; 2019-05-25)
PROC: 3E0337Z Introduction of Electrolytic and Water Balance Substance into Peripheral Vein, Percutaneous Approach (ICD-10-PCS; 2019-05-25)
PROC: 3E03329 Introduction of Other Anti-infective into Peripheral Vein, Percutaneous Approach (ICD-10-PCS; 2019-05-25)
PROC: 3E033NZ Introduction of Analgesics, Hypnotics, Sedatives into Peripheral Vein, Percutaneous Approach (ICD-10-PCS; 2019-05-25)
PROC: 3E03329 Introduction of Other Anti-infective into Peripheral Vein, Percutaneous Approach (ICD-10-PCS; 2019-05-25)
DX: E86.0 Dehydration (principal); R65.10 Systemic inflammatory response syndrome (SIRS) of non-infectious origin without acute organ dysfunction; J44.9 Chronic obstructive pulmonary disease, unspecified; E03.9 Hypothyroidism, unspecified; F32.9 Major depressive disorder, single episode, unspecified; Z98.890 Other specified postprocedural states; Z88.0 Allergy status to penicillin
CPT/HCPCS: 36415; 71045-TC-FY; 80053; 81003; 82803; 83605; 84484; 85025; 87086; 87804; 93005; 93010; 94640; 96361; 96365; 96375; 99283-25; J0131; J7030

== ENCOUNTER 2019-05-28 21:33 | Emergency (ER) | payer OTHER, MEDICARE ==
[2019-05-28 22:44] VITALS: TEMP 98.1; BMI 18.9
[2019-05-28] MEDS ORDERED: SODIUM CHLORIDE 1,000 ML IV STA (22:51)
--- NOTE | 2019-05-28 22:51 | PDOC ---
History of Present Illness - General Chief Complaint: Rash Stated Complaint: RASH Time Seen by Provider: 05/28/19 22:29 History Source: Patient Exam Limitations: No Limitations - History of Present Illness Initial Comments: Bethanie De La Fuente is a 73 yo F w a pmh of hypothydroidism, depression, and COPD who has been taking metronidazole for the past 2 weeks for a colonoscopy which she had this past Saturday presents to the ER after she experienced a rash on her lower legs, a metallic taste in her throat, and 4 episodes of watery NB diarrhea today. They removed multiple polyps during her colonoscopy but otherwise the event was unremarkable. She states she has not taken any wayne medications today other than her standard venlafaxine, advair, levothyroxine and metro. She is primarily concerned with her rash on her legs. Denies associated abdominal pain, nausea, vomiting, fevers, chills, chest pain, SOB, difficulty breathing, throat swelling, new drug or exposures, tic bites PCP: Obed Pena PSH: appendectomy Social Hx: Former smoker, Allergies: Penicillins Past History - Past Medical History Allergies/Adverse Reactions: Allergies Allergy/AdvReac Type Severity Reaction Status Date / Time Penicillins Allergy Verified 05/28/19 22:21 Home Medications: Ambulatory Orders Tiotropium [place] [Spiriva] 1 inh IH DAILY 01/17/17 Albuterol Sulfate Inhaler - [Ventolin HFA Inhaler -] 1 - 2 inh PO Q4H #1 inhaler 05/03/18 Sulfamethoxazole/Trimethoprim [Bactrim *Ds*] 1 each PO BID #20 tablet 05/03/18 Methylprednisolone [Medrol Dose Lul] 4 mg PO ASDIR #21 tablet 05/29/19 COPD: Yes Thyroid Disease: Yes - Surgical History Appendectomy: Yes - Immunization History Immunization Up to Date: Yes - Psycho Social/Smoking Cessation Hx Smoking History: Never smoked Have you smoked in the past 12 months: No Information on smoking cessation initiated: No Hx Alcohol Use: No Drug/Substance Use Hx: No Review of Systems - Review of Systems Able to Perform ROS?: Yes Comments:: CONSTITUTIONAL: Absent: fever, no chills, no fatigue EYES: Absent: visual changes ENT: Absent: ear pain, no sore throat CARDIOVASCULAR: Absent: chest pain, no palpitations RESPIRATORY: Absent: cough, no SOB GI: Present: diarrhea Absent: abdominal pain, no nausea, no vomiting, no constipation GENITOURINARY: Absent: dysuria, no frequency, no hematuria MUSKULOSKELETAL: Absent: back pain, no arthralgia, no myalgia SKIN: Present: rash NEURO: Absent: headache *Physical Exam - Vital Signs Last Vital Signs Temp Pulse Resp BP Pulse Ox 98.1 F 84 18 114/71 93 L 05/28/19 22:37 05/28/19 22:37 05/28/19 22:37 05/28/19 22:37 05/28/19 22:37 - Physical Exam GENERAL: Well-appearing, well-nourished. No apparent distress. HEENT: Normocephalic, atraumatic. PERRL, EOM intact. CARDIOVASCULAR: Normal S1, S2. Regular rate and rhythm. PULMONARY: No evidence of respiratory distress. Lungs clear to auscultation bilaterally. No wheezing, rales or rhonchi. ABDOMEN: Soft, non-distended, non-tender. EXTREMITIES: Normal ROM in all four extremities. No gross deformities. SKIN: The lower abdomen and both legs have a diffuse maculo-papular, blanching, petechial, non-pruritic rash. Warm, dry. NEUROLOGICAL: No focal neurological deficits. ED Treatment Course - LABORATORY CBC & Chemistry Diagram: 05/29/19 00:35 05/29/19 00:35 Medical Decision Making - Medical Decision Making Bethanie De La Fuente is a 73 yo F w a pmh of hypothydroidism, depression, and COPD who has been taking metronidazole for the past 2 weeks for a colonoscopy which she had this past Saturday presents to the ER after she experienced a rash on her lower legs, a metallic taste in her throat, and 4 episodes of watery NB diarrhea today. They removed multiple polyps during her colonoscopy but otherwise the event was unremarkable. She states she has not taken any wayne medications today other than her standard venlafaxine, advair, levothyroxine and metro. She is primarily concerned with her rash on her legs. Vital Signs Temp Pulse Resp BP Pulse Ox 98.1 F 84 18 114/71 93 L 05/28/19 22:37 05/28/19 22:37 05/28/19 22:37 05/28/19 22:37 05/28/19 22:37 DDx IBNLT: Drug rash, dehydration, electrolyte/metabolic disturbance, anemia, not likely anaphylaxis Plan: Labs, IV hydration, anti-histamine, steroids, likely DC Labs: elevated BUN and mildly low potasium - Hydrating with 1L ns - replenishing potassium orally Re-assessment: Patient feels well in ED and has no complaints. She would like to be discharged and agrees to stop taking metronidazole. She states she will follow up with her PCP to make sure everything is okay. Disposition: Home with PCP fu Discharge - Discharge Information Problems reviewed: Yes Clinical Impression/Diagnosis: Drug rash Condition: Improved Disposition: HOME - Admission No - Additional Discharge Information Prescriptions: Methylprednisolone [Medrol Dose Lul] 4 mg PO ASDIR #21 tablet - Follow up/Referral Referrals: Obed Pena MD [Primary Care Provider] - [facility] [Provider Group] - Patient Discharge Instructions Patient Printed Discharge Instructions: DI for Rash Additional Instructions: You came into the ER with a rash from your metronidazole. Please stop taking your metronidazole and your rash will likely go away. We are sending a medication over to your pharmacy for you to take over the next 3 days. Schedule a follow up appointment to make sure you are being taken care of and geting better Come back to the ER with any new or worsening concerns. Print Language: NORTHER[place] IRISH - Post Discharge Activity
[2019-05-28] MEDS ORDERED: FAMOTIDINE 20 MG/50 ML IVPB 20 MG/50 ML MG IVPB ONE (23:31)
[2019-05-28] MEDS ORDERED: predniSONE 20 MG TABLET (UD) PO ONE (23:31)
--- NOTE | 2019-05-29 | PDOC ---
Documentation entered by Dawit Petty SCRIBE, acting as scribe for Soni Vaughan DO. Soni Vaughan DO: This documentation has been prepared by the Malinda jimenez Angel, SCRIBE, under my direction and personally reviewed by me in its entirety. I confirm that the documentation accurately reflects all work, treatment, procedures, and medical decision making performed by me. Attending Attestation - Resident Resident Name: Julius Ignacio - ED Attending Attestation I have performed the following: I have examined & evaluated the patient, The case was reviewed & discussed with the resident, I agree w/resident's findings & plan, Exceptions are as noted - HPI HPI: 05/28/19 23:36 The patient is a 73 year old female with a significant PMH of hypothyroidism, depression, COPD who presents to the emergency department for BLE rash. Pt states she had a recent colonoscopy done and has been taking metronidazole for the past 2 weeks. Pt states today she took her metronidazole felt like she had a mood swing, endorsed a metal taste in her throat and 4 episodes of nb watery diarrhea. The patient denies shortness of breath, headache and dizziness. Denies fever, chills, cough, nausea, vomiting, and constipation. Denies dysuria, frequency, urgency and hematuria. Allergies: Penicillins PCP: Dr. Pena - Physicial Exam PE: 05/28/19 23:36 GENERAL: Awake, alert, and fully oriented, in no acute distress HEAD: No signs of trauma EYES: PERRLA, EOMI, sclera anicteric, conjunctiva clear ENT: Auricles normal inspection, hearing grossly normal, nares patent, oropharynx clear without exudates. +dry mucosa NECK: Normal ROM, supple, no lymphadenopathy, JVD, or masses LUNGS: Breath sounds equal, clear to auscultation bilaterally. No wheezes, and no crackles HEART: Regular rate and rhythm, normal S1 and S2, no murmurs, rubs or gallops ABDOMEN: Soft, nontender, normoactive bowel sounds. No guarding, no rebound. No masses EXTREMITIES: Normal range of motion, no edema. No clubbing or cyanosis. No cords, erythema, or tenderness NEUROLOGICAL: Cranial nerves II through XII grossly intact. Normal speech, normal gait SKIN: +pale. +Maculopapular blanching rash all over lower back, bilateral hands and BLE. Warm, Dry.. - Medical Decision Making 05/28/19 23:58 I, Dr. Snoi Vaughan, DO, attest that this document has been prepared under my direction and personally reviewed by me in its entirety. I further attest, that it accurately reflects all work, treatment, procedures and medical decision -making performed by me. a/p: 73yo female with LE rash she noticed today -states she started flagyl about a week ago -on saturday she had a colonoscopy with polyp removal -today with 4 episodes of loose stool tonight and then noticed the [facility] -suspect drug rash from flagyl -will send labs given diarrhea, will medicate for allergy -will monitor and reassess -pt appears dehydrated on exam 05/29/19 01:53 potassium 3.1 will replace cbc pending pt signed out pending labs and re-eval Heart Score/ECG Review - ECG Intrepretation Comment:: 05/28/19 23:59 sinus at 80, nl axis, nl interval, no acute st/t wave findings
[2019-05-29] MEDS ORDERED: FAMOTIDINE 20 MG/50 ML IVPB 20 MG/50 ML MG IVPB ONE (00:38)
[2019-05-29] MEDS ORDERED: predniSONE 20 MG TABLET (UD) ONE (00:38)
[2019-05-29 01:33] LABS: BILIRUBIN,TOTAL 0.3 mg/dL (0.2-1); BLOOD UREA NITROGEN 23.4 mg/dL (7-18); CALCIUM 9.6 mg/dL (8.5-10.1); CREATININE 0.6 mg/dL (0.55-1.3); MAGNESIUM 1.9 mg/dL (1.8-2.4); POTASSIUM 3.1 mmol/L (3.5-5.1)
[2019-05-29] MEDS ORDERED: POTASSIUM CHLORIDE TABS 20 MEQ TABLET.ER (FP) PO ONE (01:36)
[2019-05-29] MEDS ORDERED: POTASSIUM CHLORIDE ORAL LIQUID 20 MEQ/15 ML PO ONE (01:43)
[2019-05-29 01:51] LABS: BASO % 0.2 % (0-2.0); EOS % 5.8 % (0-4.5); HEMATOCRIT 38.8 % (32.4-45.2); HEMOGLOBIN 13.5 GM/dL (10.7-15.3); LYMPH % 13.3 % (8-40); MCH 31.9 pg (25.7-33.7); MCHC 34.8 g/dl (32.0-36.0); MEAN CELL VOLUME 91.7 fl (80-96); MEAN PLT VOLUME 8.9 fl (7.5-11.1); MONO % 7.9 % (3.8-10.2); NEUT % 72.8 % (42.8-82.8); PLATELET COUNT 119 K/MM3 (134-434); RBC 4.23 M/mm3 (3.60-5.2); RDW 12.9 % (11.6-15.6); WHITE BLOOD COUNT 3.6 K/mm3 (4.0-10.0)
[2019-05-29] MEDS ORDERED: POTASSIUM CHLORIDE ORAL LIQUID 20 MEQ/15 ML ONE (01:54)
[2019-05-29 03:18] VITALS: BP 109/79; PULSE 91
--- NOTE | 2019-05-29 12:24 | EKG ---
Test Reason : Blood Pressure : / mmHG Vent. Rate : 080 BPM Atrial Rate : 080 BPM P-R Int : 144 ms QRS Dur : 076 ms QT Int : 380 ms P-R-T Axes : 074 059 060 degrees QTc Int : 438 ms NORMAL SINUS RHYTHM NORMAL ECG WHEN COMPARED WITH ECG OF 26-MAY-2019 00:21, T WAVE INVERSION NO LONGER EVIDENT IN INFERIOR LEADS Confirmed by JEFF RUBIO MD ([id number]) on 05/29/2019 12:24:15 PM Referred By: Confirmed By:JEFF RUBIO MD
== END 2019-05-29 03:17 | disposition home or self-care (01) ==
LOC: JER 21:33
PROC: 3E033GC Introduction of Other Therapeutic Substance into Peripheral Vein, Percutaneous Approach (ICD-10-PCS; principal; 2019-05-28)
DX: L27.0 Generalized skin eruption due to drugs and medicaments taken internally (principal); T37.3X5A Adverse effect of other antiprotozoal drugs, initial encounter; Y92.018 Other place in single-family (private) house as the place of occurrence of the external cause; E87.6 Hypokalemia; J44.9 Chronic obstructive pulmonary disease, unspecified; E03.9 Hypothyroidism, unspecified; F32.9 Major depressive disorder, single episode, unspecified; Z88.0 Allergy status to penicillin; Z88.1 Allergy status to other antibiotic agents
CPT/HCPCS: 36415; 80053; 83690; 83735; 84100; 85025; 93005; 93010; 99282-25; J7030

== ENCOUNTER 2020-11-12 15:44 | Emergency (ER) | payer OTHER, MEDICARE ==
[2020-11-12 16:04] VITALS: BP 105/59; PULSE 77; TEMP 97.8; BMI 18.8
[2020-11-12] MEDS ORDERED: LIDOCAINE HCL 2% (50ML VIAL) INF ONE (16:27)
[2020-11-12] MEDS ORDERED: DIPHTH,PERTUSS(ACELL),TET 0.5 ML DISP.SYRIN IM ONE ×2 (16:27→16:29)
[2020-11-12] MEDS ORDERED: LIDOCAINE HCL 2% (20ML MULTI-DOSE VIAL) ONE (16:29)
== END 2020-11-12 19:05 | disposition home or self-care (01) ==
LOC: FER 15:44
PROC: 3E0234Z Introduction of Serum, Toxoid and Vaccine into Muscle, Percutaneous Approach (ICD-10-PCS; principal; 2020-11-12)
DX: S63.259A Unspecified dislocation of unspecified finger, initial encounter (principal)
CPT/HCPCS: 70450-TC; 72125-TC; 73130-TC-RT-FY; 90471; 90715; 99284-25

== ENCOUNTER 2021-03-01 20:57 | Emergency (ER) | payer OTHER, MEDICARE ==
[2021-03-01 21:27] VITALS: BP 125/83; PULSE 95; TEMP 99.9; BMI 19.5
[2021-03-01 22:01] LABS: BASO % 1.6 % (0-2.0); EOS % 2.5 % (0-4.5); HEMATOCRIT 39.7 % (32.4-45.2); HEMOGLOBIN 13.1 GM/dl (10.7-15.3); LYMPH % 19.4 % (8-40); MCH 30.4 pg (25.7-33.7); MCHC 33.1 g/dl (32.0-36.0); MEAN PLT VOLUME 7.6 fl (7.5-11.1); MONO % 14.2 % (3.8-10.2); NEUT % 62.3 % (42.8-82.8); PLATELET COUNT 163 10^3/uL (134-434); RBC 4.31 M/mm3 (3.60-5.2); RDW 12.3 % (11.6-15.6); WHITE BLOOD COUNT 3.2 K/mm3 (4.0-10.8)
[2021-03-01 22:13] LABS: ALBUMIN 4.4 g/dl (3.4-5.0); ALK PHOS 58 U/L (45-117); ANION GAP 10 MMOL/L (8-16); BILIRUBIN,TOTAL 0.5 mg/dl (0.2-1); CALCIUM 9.9 mg/dl (8.5-10); CHLORIDE 100 mmol/L (98-107); CO2 27 mmol/L (21-32); CREATININE 0.6 mg/dl (0.55-1.3); GLUCOSE,RANDOM 107 mg/dl (74-106); SGOT/AST 25 U/L (15-37); SGPT/ALT 10 U/L (13-61); SODIUM 137 mmol/L (136-145); TOT PROT 7.1 g/dl (6.4-8.2)
[2021-03-01] MEDS ORDERED: ALBUTEROL SO4 2.5/IPRATROPIUM 0.5 INH SOL 3 ML VIAL.NEB. NEB ONE ×2 (22:13→22:17)
[2021-03-01] MEDS ORDERED: predniSONE 20 MG TABLET (UD) PO ONE (22:13)
[2021-03-01 22:17] LABS: CALCIUM OXALATE CRYSTALS FEW /hpf (NONE SEEN); EPITHELIAL CELLS FEW /hpf
[2021-03-01] MEDS ORDERED: predniSONE 20 MG TABLET (UD) ONE (22:17)
[2021-03-01 22:44] LABS: N-TERMINAL BNP 97.2 pg/ml (5-450)
[2021-03-03 21:06] LABS: SARS-CoV-2 NAA Not Detected (Not Detected)
== END 2021-03-01 23:15 | disposition home or self-care (01) ==
LOC: FER 20:57
PROC: 3E0F7GC Introduction of Other Therapeutic Substance into Respiratory Tract, Via Natural or Artificial Opening (ICD-10-PCS; principal; 2021-03-01)
DX: J44.1 Chronic obstructive pulmonary disease with (acute) exacerbation (principal); B34.9 Viral infection, unspecified
CPT/HCPCS: 36415; 71045-TC-FY; 80053; 81003; 81015; 82550; 83605; 83880; 84484; 85025; 93005; 99285-25; C9803; U0003; U0005

== ENCOUNTER 2021-09-07 10:48 | Emergency (ER) | payer OTHER, MEDICARE ==
[2021-09-07 10:54] VITALS: BMI 20.1
[2021-09-07 16:41] VITALS: BP 114/75; PULSE 70; TEMP 97.6
== END 2021-09-07 17:33 | disposition home or self-care (01) ==
LOC: JER 10:48
DX: R09.89 Other specified symptoms and signs involving the circulatory and respiratory systems (principal)
CPT/HCPCS: 70490-TC; 71250-TC; 74176-TC; 99284-25

== ENCOUNTER 2022-08-19 05:16 | Emergency (ER) | payer OTHER, MEDICARE ==
[2022-08-19 05:26] VITALS: BMI 17.6
[2022-08-19 09:37] VITALS: BP 125/87; PULSE 82; TEMP 98
[2022-08-19 09:45] VITALS: RESP 18
== END 2022-08-19 10:05 | disposition short-term general hospital (02) ==
LOC: JER 05:16
DX: T17.208A Unspecified foreign body in pharynx causing other injury, initial encounter (principal); Z20.822 Contact with and (suspected) exposure to COVID-19
CPT/HCPCS: 0241U-QW; 70360-TC-FY; 70490-TC; 71045-TC-FY; 99285-25

== ENCOUNTER 2023-12-18 14:17 | Inpatient (IN) | payer OTHER, MEDICARE ==
[2023-12-18 15:42] LABS: BASO % 0.3 % (0-2.0); EOS % 0.6 % (0-4.5); HEMATOCRIT 37.3 % (32.4-45.2); HEMOGLOBIN 12.8 GM/dL (10.7-15.3); LYMPH % 14.6 % (8-40); MCH 31.1 pg (25.7-33.7); MCHC 34.3 g/dl (32.0-36.0); MEAN CELL VOLUME 90.7 fl (80-96); MEAN PLT VOLUME 7.8 fl (7.5-11.1); MONO % 8.1 % (3.8-10.2); NEUT % 76.4 % (42.8-82.8); PLATELET COUNT 193 10^3/uL (134-434); RBC 4.11 M/mm3 (3.60-5.2); RDW 13.2 % (11.6-15.6); URINE APPEARANCE CLEAR; URINE BILIRUBIN NEGATIVE (NEGATIVE); URINE COLOR YELLOW; URINE GLUCOSE (UA) NEGATIVE (NEGATIVE); URINE KETONE NEGATIVE (NEGATIVE); URINE LEUK ESTERASE NEGATIVE (NEGATIVE); URINE NITRITE NEGATIVE (NEGATIVE); URINE PROTEIN NEGATIVE (NEGATIVE); URINE UROBILINOGEN 0.2 mg/dL (0.2-1.0); WHITE BLOOD COUNT 6.1 K/mm3 (4.0-10.0)
[2023-12-18 16:04] LABS: POTASSIUM 3.9 mmol/L (3.5-5.1)
[2023-12-18 16:05] LABS: CALCIUM 9.3 mg/dL (8.5-10.1)
[2023-12-18 16:06] LABS: ALBUMIN 3.8 g/dl (3.4-5.0)
[2023-12-18 16:09] LABS: CREATININE 0.6 mg/dL (0.55-1.3)
[2023-12-18 16:11] LABS: BILIRUBIN,TOTAL 0.4 mg/dL (0.2-1); TOT PROT 6.5 g/dl (6.4-8.2)
[2023-12-18 21:00] VITALS: BMI 16.1
[2023-12-18] MEDS: DONEPEZIL HCL 10 MG TABLET (FP) PO SCH (22:00)
[2023-12-18] MEDS: CITALOPRAM HYDROBROMIDE 20 MG TABLET PO SCH (22:00)
[2023-12-18] MEDS: MIRTAZAPINE 15 MG TABLET (FP) PO SCH (22:00)
[2023-12-18] MEDS: FLUTICASONE/UMECLIDIN/VILANTER(100-62.5-25 TRELEGY ELLIPTA) INAHLER IH SCH (22:31)
[2023-12-19] MEDS: LEVOTHYROXINE NA 25 MCG TABLET (FP) PO SCH (06:09)
[2023-12-19 07:19] LABS: BASO % 0.5 % (0-2.0); EOS % 1.4 % (0-4.5); HEMATOCRIT 37.6 % (32.4-45.2); LYMPH % 28.2 % (8-40); MCH 31.5 pg (25.7-33.7); MCHC 34.5 g/dl (32.0-36.0); MEAN CELL VOLUME 91.4 fl (80-96); MEAN PLT VOLUME 7.9 fl (7.5-11.1); MONO % 11.1 % (3.8-10.2); NEUT % 58.8 % (42.8-82.8); PLATELET COUNT 180 10^3/uL (134-434); RBC 4.11 M/mm3 (3.60-5.2); RDW 12.8 % (11.6-15.6); WHITE BLOOD COUNT 4.5 K/mm3 (4.0-10.0)
[2023-12-19 07:36] LABS: ALBUMIN 3.6 g/dl (3.4-5.0); BLOOD UREA NITROGEN 16.9 mg/dL (7-18); CALCIUM 8.9 mg/dL (8.5-10.1); MAGNESIUM 2.5 mg/dL (1.8-2.4)
[2023-12-19 07:39] LABS: CREATININE 0.6 mg/dL (0.55-1.3); PHOSPHOROUS 3.3 mg/dL (2.5-4.9)
[2023-12-19 07:40] LABS: TOT PROT 6.3 g/dl (6.4-8.2)
[2023-12-19 07:52] LABS: BILIRUBIN,TOTAL 0.6 mg/dL (0.2-1)
[2023-12-19] MEDS: ENOXAPARIN NA (PORCINE) 40 MG/0.4 ML DISP.SYRIN SQ SCH (15:40)
[2023-12-19] MEDS ORDERED: ALBUTEROL SO4 0.083% IH SOL 2.5 MG/3 ML VIAL.NEB. NEB PRN (18:29)
[2023-12-19] MEDS: QUEtiapine FUMARATE 25 MG TABLET PO SCH (21:54)
[2023-12-20] MEDS: PATIENT'S OWN MEDICATION (NON-FORMULARY) (Carbidopa/Levodopa [Rytary Er 61.25 Mg-245 Mg Ca PO SCH (08:16)
[2023-12-20 08:39] VITALS: RESP 18
[2023-12-20] MEDS: MULTIVITAMINS (DAILY MVI) TABLET (FP) PO SCH (10:44)
[2023-12-20] MEDS: LORazepam 0.5 MG TABLET PO PRN (17:35)
[2023-12-20] MEDS: MEMANTINE HCL 10 MG TABLET (FP) PO SCH (17:35)
[2023-12-21 09:43] VITALS: BP 135/83; PULSE 92; TEMP 98.4
== END 2023-12-21 13:32 | disposition home or self-care (01) | DRG 57 ==
LOC: JER 14:17 → JERBED 16:21 → J7W 20:41 → OBSVTOIN 12-19 09:04
PROVIDERS: ADMIT Internal Medicine; ATTEND Nurse Practitioner Family
DX: G20.A1 Parkinson's disease without dyskinesia, without mention of fluctuations (principal); R45.851 Suicidal ideations; E46 Unspecified protein-calorie malnutrition; Z68.1 Body mass index [BMI] 19.9 or less, adult; J44.9 Chronic obstructive pulmonary disease, unspecified; E03.9 Hypothyroidism, unspecified; F32.A Depression, unspecified; F02.80 Dementia in other diseases classified elsewhere, unspecified severity, without behavioral disturbance, psychotic disturbance, mood disturbance, and anxiety; E86.0 Dehydration
CPT/HCPCS: 36415; 70450-TC; 71045-TC-FY; 80053; 81003; 82607; 83735; 84100; 84443; 84484; 85025; 87086; 93005; 93010; 97116-GP; 97162-GP; 99285-25; G0378

== ENCOUNTER 2024-02-19 04:37 | Day surgery (SDC) | payer OTHER, MEDICARE ==
[2024-02-18 13:18] VITALS: BMI 18.3
[2024-02-19 08:54] VITALS: TEMP 98.3
[2024-02-19 12:33] VITALS: BP 108/66; PULSE 68; RESP 18
== END 2024-02-19 12:00 | disposition home or self-care (01) ==
LOC: JASU-ENDO 04:37
PROVIDERS: ATTEND Internal Medicine Gastroenterology
PROC: 0DBN8ZX Excision of Sigmoid Colon, Via Natural or Artificial Opening Endoscopic, Diagnostic (ICD-10-PCS; 2024-02-19)
PROC: 0DBH8ZX Excision of Cecum, Via Natural or Artificial Opening Endoscopic, Diagnostic (ICD-10-PCS; 2024-02-19)
PROC: 0DB98ZX Excision of Duodenum, Via Natural or Artificial Opening Endoscopic, Diagnostic (ICD-10-PCS; 2024-02-19)
PROC: 0DB28ZX Excision of Middle Esophagus, Via Natural or Artificial Opening Endoscopic, Diagnostic (ICD-10-PCS; 2024-02-19)
PROC: 0DB38ZX Excision of Lower Esophagus, Via Natural or Artificial Opening Endoscopic, Diagnostic (ICD-10-PCS; 2024-02-19)
PROC: 0DB48ZX Excision of Esophagogastric Junction, Via Natural or Artificial Opening Endoscopic, Diagnostic (ICD-10-PCS; 2024-02-19)
PROC: 0DBM8ZX Excision of Descending Colon, Via Natural or Artificial Opening Endoscopic, Diagnostic (ICD-10-PCS; principal; 2024-02-19 10:00)
DX: Z12.11 Encounter for screening for malignant neoplasm of colon (principal); D12.4 Benign neoplasm of descending colon; D12.7 Benign neoplasm of rectosigmoid junction; K63.5 Polyp of colon; K57.30 Diverticulosis of large intestine without perforation or abscess without bleeding; Z86.0100 Personal history of colon polyps, unspecified; K21.00 Gastro-esophageal reflux disease with esophagitis, without bleeding; K44.9 Diaphragmatic hernia without obstruction or gangrene; R13.10 Dysphagia, unspecified; R19.7 Diarrhea, unspecified
CPT/HCPCS: 88305-TC